=== PATIENT | male | born 1980 | race Caucasian/White ===

== ENCOUNTER → 2022-02-18 | Outpatient (CLI) | payer OTHER ==
[~2022-02-18] MED LIST: CIPR500T89 PO; ISOVUE-300 61% 50ML VIAL As Ordered ONE; LIDOCAINE 1% MDV 20ML VIAL As Ordered ONE; PROHANCE 279.3MG/ML 5ML VIAL As Ordered ONE; ULTR50TA PO
== END ==
LOC: M RADPRO 06:34
PROVIDERS: ATTEND Physician Assistant
DX: S43.431A Superior glenoid labrum lesion of right shoulder, initial encounter (principal); M25.511 Pain in right shoulder
CPT/HCPCS: 23350; 73223; 77002; A9576; Q9967

== ENCOUNTER 2022-07-06 10:49 | Day surgery (SDC) | payer OTHER ==
[~2022-07-06] VITALS: Ht 167.6 cm; Wt 74.8 kg
[~2022-07-06 10:49] MED LIST changes: -ISOVUE-300 61% 50ML VIAL As Ordered ONE; -LIDOCAINE 1% MDV 20ML VIAL As Ordered ONE; -PROHANCE 279.3MG/ML 5ML VIAL As Ordered ONE; +ceFAZolin SOD 2 GM in IV 1 EA IV ONE
[2022-07-06] MEDS ORDERED: LIDOCAINE 1% SDV 30ML VIAL As Ordered ONE (12:07)
[2022-07-06] MEDS ORDERED: LIDOCAINE 2% MDV 20ML VIAL As Ordered ONE (12:09)
[2022-07-06] MEDS ORDERED: BUPIVACAINE HCL 0.25% 10ML VIAL As Ordered ONE (12:09)
[2022-07-06] MEDS ORDERED: HYDROmorphone HCL 2MG/ML 1ML VIAL As Ordered ONE (12:54)
[2022-07-06] MEDS ORDERED: propofoL 200 MG/20 ML VIAL As Ordered ONE (12:54)
[2022-07-06] MEDS ORDERED: SUGAMMADEX SODIUM 500 MG/5 ML VIAL (BRIDION) As Ordered ONE (12:54)
[2022-07-06] MEDS ORDERED: ONDANSETRON 4MG 2ML VIAL As Ordered ONE (12:54)
[2022-07-06] MEDS ORDERED: SEVOFLURANE INHAL SOLN 250 ML BTL As Ordered ONE (12:54)
[2022-07-06] MEDS ORDERED: ROCURONIUM BROMIDE 50MG/5ML VIAL As Ordered ONE (12:54)
[2022-07-06] MEDS ORDERED: METOCLOPRAMIDE INJ 10MG/2ML VIAL As Ordered ONE (12:54)
[2022-07-06] MEDS ORDERED: LIDOCAINE 2% 100MG/5ML SDV (FOR ANES.) As Ordered ONE (12:54)
[2022-07-06] MEDS ORDERED: fentaNYL 100 MCG/2 ML INJECTION As Ordered ONE (12:54)
[2022-07-06] MEDS ORDERED: MIDAZOLAM INJ 2MG/2ML VIAL As Ordered ONE (12:54)
[2022-07-06] MEDS ORDERED: ceFAZolin 1GM VIAL As Ordered ONE (13:28)
[2022-07-06] MEDS ORDERED: KETOROLAC 60MG 2ML VIAL As Ordered ONE (13:28)
[2022-07-06] MEDS ORDERED: fentaNYL 100 MCG/2 ML INJECTION IV PRN (13:40)
[2022-07-06] MEDS ORDERED: LR 1,000 ML IV SCH (13:40)
[2022-07-06] MEDS ORDERED: ONDANSETRON 4MG 2ML VIAL IV PRN (13:40)
[2022-07-06] MEDS ORDERED: oxyCODONE 5MG TAB PO PRN (13:40)
[2022-07-06] MEDS ORDERED: HYDROMORPHONE HCL 0.5 MG/ 0.5 ML SYRINGE IV PRN (13:40)
[2022-07-06] MEDS ORDERED: CEPH500C PO (13:59)
[2022-07-06] MEDS ORDERED: HYDR-3713 PO (13:59)
[2022-07-06 15:10] VITALS: BP 143/88
== END 2022-07-06 15:18 | disposition home or self-care (01) ==
LOC: M SDC 10:49
PROVIDERS: ATTEND Urology
DX: Z30.2 Encounter for sterilization (principal); N50.0 Atrophy of testis; Z87.828 Personal history of other (healed) physical injury and trauma; M54.9 Dorsalgia, unspecified; G89.29 Other chronic pain; F17.200 Nicotine dependence, unspecified, uncomplicated
CPT/HCPCS: 54520; 55250; 88302; 88305; C1813; J0690; J1100; J1170; J1885; J2250; J2405; J2765; J3010; S0020

== ENCOUNTER → 2022-09-02 | Outpatient (REF) | payer OTHER ==
[~2022-09-02] MED LIST changes: +CEPH500C PO; +HYDR-3713 PO; -ceFAZolin SOD 2 GM in IV 1 EA IV ONE
[2022-09-02 11:18] LABS: SEMEN APPEARANCE OPAQUE (OPAQUE); SEMEN VISCOSITY LIQUID (LIQUID); SEMEN VOLUME 4.5 ml (2.0-5.0); WBC CONCENTRATION <=1 M/ml (<=1 M/ml)
== END ==
LOC: M SMT 10:08
PROVIDERS: ATTEND Urology
DX: Z48.816 Encounter for surgical aftercare following surgery on the genitourinary system (principal)

== ENCOUNTER → 2022-12-17 | Outpatient (CLI) | payer OTHER | LOC: M PLAIMG 08:54 | PROVIDERS: ATTEND Physician Assistant | DX: M25.551 Pain in right hip (principal); M25.552 Pain in left hip ==